=== PATIENT | female | born 2000 | race African-American/Black ===

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

== ENCOUNTER 2023-01-19 12:12 | Outpatient (CLI) | payer OTHER | END 2023-01-19 12:13 | disposition home or self-care (01) | LOC: BICULT 12:12 | PROVIDERS: ATTEND Family Medicine | DX: Z34.83 Encounter for supervision of other normal pregnancy, third trimester (principal); Z3A.30 30 weeks gestation of pregnancy | CPT/HCPCS: 76805 ==

== ENCOUNTER → 2023-02-08 | Emergency (ER) | payer OTHER | LOC: ERS 12:28 | DX: O60.03 Preterm labor without delivery, third trimester (principal); Z3A.33 33 weeks gestation of pregnancy | CPT/HCPCS: 99284 ==